=== PATIENT | male | born 1950 | race American Indian/Alaskan Native ===

== ENCOUNTER 2021-02-25 23:11 | Inpatient (IN) | payer MEDICARE ==
[2021-02-25 23:55] LABS: Basophils % (Auto) 0.3 % (0.0-1.8); Eosinophils # (Auto) 0.1 K/mm3 (0.0-0.4); Eosinophils % (Auto) 1.6 % (0.0-4.3); Hematocrit 50.8 % (35.5-45.6); Hemoglobin 17.4 gm/dl (11.8-15.2); Lymphocytes # (Auto) 1.7 K/mm3 (1.2-5.4); Lymphocytes % (Auto) 38.9 % (13.4-35.0); Mean Corpuscular HGB Conc 34 % (32-34); Mean Corpuscular Volume 104 fl (84-94); Monocytes # (Auto) 0.2 K/mm3 (0.0-0.8); Monocytes % (Auto) 4.5 % (0.0-7.3); Platelet Count 244 K/mm3 (140-440); Red Blood Count 4.89 M/mm3 (3.65-5.03); Red Cell Distribution Width 17.5 % (13.2-15.2)
[2021-02-26 00:13] LABS: Alanine Aminotransferase 39 units/L (7-56); Albumin 4.1 g/dL (3.9-5); BUN/Creatinine Ratio 7; Blood Urea Nitrogen 7 mg/dL (9-20); Calcium 8.8 mg/dL (8.4-10.2); Hemolysis Index 15
--- NOTE | 2021-02-26 00:14 | Cat Scan Report ---
CT HEAD WITHOUT CONTRAST INDICATION / CLINICAL INFORMATION: AMS. TECHNIQUE: All CT scans at this location are performed using CT dose reduction for ALARA by means of automated exposure control. COMPARISON: None available. FINDINGS: HEMORRHAGE: None. EXTRA-AXIAL SPACES: Mildly prominent likely related to cortical atrophy. VENTRICULAR SYSTEM: Normal in size and morphology for the patient's age. CEREBRAL PARENCHYMA: There is loss of peterson-white differentiation involving the medial right occipital lobe. MIDLINE SHIFT / HERNIATION: None. CEREBELLUM / BRAINSTEM: No significant abnormality. ORBITS: Normal as visualized. SOFT TISSUES: No significant abnormality. SKULL: No significant abnormality. PARANASAL SINUSES / MASTOID AIR CELLS: Normal as visualized. ADDITIONAL FINDINGS: None. IMPRESSION: 1. 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 No evidence of hemorrhage. CRITICAL RESULT Time of Discovery (BOTTLE CAPPER/CDT): 11:05 PM Time of Communication (BOTTLE CAPPER/CDT): 11:10 PM Licensed Practitioner Receiving Report: Dr. Keller Read-Back Performed: Yes. Signer Name: Shreyas Pacheco DO Signed: 02/26/2021 12:10 AM Workstation Name: [id number]
[2021-02-26 00:16] LABS: Bilirubin,Direct < 0.2 mg/dL (0-0.2)
--- NOTE | 2021-02-26 00:23 | Emergency Department Report ---
ED Altered Mental Status HPI - General Chief Complaint: Altered Mental Status Stated Complaint: ALTERED MENTAL STATUS Time Seen by Provider: 02/25/21 23:16 Source: EMS Mode of arrival: Stretcher Limitations: No Limitations - History of Present Illness Initial Comments: 70-year-old male presents to ED for altered mental status. Patient reports he has a history of lung cancer and "heart problems." EMS reports patient has a history of a previous CVA. Patient states he is unaware of a previous diagnosis of CVA. EMS reports that patient's grandson called 911 because patient has not been, normally over the last 2-3 days. This includes him not eating well. Grandson also reported that he noticed patient had slurred speech at around 3:30 PM. Patient reports drinking alcohol this afternoon. States he had one [place]. Patient's only complaint is that he has some dizziness that has been going on for the last 2 months. Patient denies any weakness or numbness. MD Complaint: altered mental status -: days(s) (3) Severity: moderate Context: alcohol abuse Associated Symptoms: loss of appetite. denies: chest pain, fever/chills, headaches, nausea/vomiting, shortness of breath, weakness - Related Data Allergies Allergy/AdvReac Type Severity Reaction Status Date / Time No Known Allergies Allergy Verified 02/25/21 23:20 ED Review of Systems ROS: Stated complaint: ALTERED MENTAL STATUS Other details as noted in HPI Comment: All other systems reviewed and negative Constitutional: denies: fever Respiratory: denies: shortness of breath Cardiovascular: denies: chest pain Gastrointestinal: denies: abdominal pain, vomiting Neurological: denies: headache, weakness, numbness ED Past Medical Hx - Past Medical History Hx Hypertension: Yes Hx CVA: Yes Hx of Cancer: Yes (lung) - Social History Smoking Status: Current Every Day Smoker ED Physical Exam - General Limitations: No Limitations General appearance: alert, in no apparent distress, appears intoxicated - Head Head exam: Present: atraumatic, normocephalic - Eye Eye exam: Present: normal appearance, EOMI - ENT ENT exam: Present: mucous membranes moist - Neck Neck exam: Present: normal inspection - Respiratory Respiratory exam: Present: normal lung sounds bilaterally. Absent: respiratory distress - Cardiovascular Cardiovascular Exam: Present: regular rate, normal rhythm - GI/Abdominal GI/Abdominal exam: Present: soft. Absent: distended, tenderness - Extremities Exam Extremities exam: Present: normal inspection - Neurological Exam Neurological exam: Present: alert, oriented X3 - Psychiatric Psychiatric exam: Present: normal affect, normal mood - Skin Skin exam: Present: warm, dry, intact, normal color - Assessment Assessment Interval: Baseline - Level of Consciousness 1a. Level of Consciousness: alert/keenly responsive - LOC Questions 1b. LOC Questions: answers both correctly - LOC Command 1c. LOC Commands: performs tasks correctly - Best Gaze 2. Best Gaze: normal - Visual 3. Visual: no visual loss - Facial Palsy 4. Facial Palsy: normal symmetrical movement - Motor Arm 5a. Motor Arm Left: no drift 5b. Motor Arm Right: no drift - Motor Leg 6a. Motor Leg Left: no drift 6b. Motor Leg Right: drift - Limb Ataxia 7. Limb Ataxia: absent - Sensory 8. Sensory: normal - Best Language 9. Best Language: no aphasia - Dysarthria 10. Dysarthria: mild/moderate dysarthria - Extinction and Inattention 11. Extinction/Inattention: no abnormality - Scoring Total Score: 2 Stroke Severity: Minor Stroke ED Course Vital Signs 02/25/21 02/25/21 02/26/21 23:20 23:46 00:02 Temperature 98.2 F Pulse Rate 84 99 H Respiratory 16 16 Rate Blood Pressure 104/69 106/71 [Left] O2 Sat by Pulse 97 97 97 Oximetry 02/26/21 02:00 Temperature Pulse Rate 90 Respiratory 30 H Rate Blood Pressure 101/67 [Left] O2 Sat by Pulse 98 Oximetry - Consultations Consultation #1: 02/26/21 00:[address] Valenzuela, teleneurologist. Patient not within TPA window. Admit for stroke work-up. - Lab Data Result diagrams: 02/25/21 23:34 02/25/21 23:34 Lab Results 02/25/21 02/25/21 02/25/21 Range/Units 23:34 23:34 23:34 WBC 4.2 L (4.5-11.0) K/mm3 RBC 4.89 (3.65-5.03) M/mm3 Hgb 17.4 H (11.8-15.2) gm/dl Hct 50.8 H (35.5-45.6) % MCV 104 H (84-94) fl MCH 36 H (28-32) pg MCHC 34 (32-34) % RDW 17.5 H (13.2-15.2) % Plt Count 244 (140-440) K/mm3 Lymph % (Auto) 38.9 H (13.4-35.0) % [place] % (Auto) 4.5 (0.0-7.3) % Eos % (Auto) 1.6 (0.0-4.3) % Baso % (Auto) 0.3 (0.0-1.8) % Lymph # (Auto) 1.7 (1.2-5.4) K/mm3 [place] # (Auto) 0.2 (0.0-0.8) K/mm3 Eos # (Auto) 0.1 (0.0-0.4) K/mm3 Baso # (Auto) 0.0 (0.0-0.1) K/mm3 Seg Neutrophils % 54.7 (40.0-70.0) % Seg Neutrophils # 2.3 (1.8-7.7) K/mm3 Sodium 139 (137-145) mmol/L Potassium 3.9 (3.6-5.0) mmol/L Chloride 99.9 (98-107) mmol/L Carbon Dioxide 25 (22-30) mmol/L Anion Gap 18 mmol/L BUN 7 L (9-20) mg/dL Creatinine 1.0 (0.8-1.3) mg/dL Estimated GFR > 60 ml/min BUN/Creatinine Ratio 7 % Glucose 111 H (75-100) mg/dL Calcium 8.8 (8.4-10.2) mg/dL Total Bilirubin 0.50 (0.1-1.2) mg/dL Direct Bilirubin < 0.2 (0-0.2) mg/dL Indirect Bilirubin 0.3 mg/dL AST 28 (5-40) units/L ALT 39 (7-56) units/L Alkaline Phosphatase 126 (35-129) units/L Total Protein 7.6 (6.3-8.2) g/dL Albumin 4.1 (3.9-5) g/dL Albumin/Globulin Ratio 1.2 % Plasma/Serum Alcohol 0.30 H (0-0.07) % - EKG Data -: EKG Interpreted by K[facility] EKG shows normal: sinus rhythm, QRS complexes Rate: normal Interpretation: nonspecific ST-T wave tatiana, other (Atrial premature complexes, left anterior fascicular block) - Radiology Data Radiology results: report reviewed, image reviewed - Medical Decision Making 70-year-old male presents to ED for altered mental status x2-3 days. Per EMS grandson also reported slurred speech at around 3:30 PM. Patient admits that he has been drinking today. Alcohol level 300. Patient's only complaint is of dizziness for a couple of months. I attempted to call patient's grandson as he was reportedly the one who called 911, however there was no answer at the phone number that patient provided. There are no phone numbers listed in the chart. CT head shows acute right medial occipital lobe infarct. NIH score of 2 on my exam. Teleneurologist consulted. Patient is not in TPA window. No CTA advised at this time. - Differential Diagnosis CVA, intoxication Critical care attestation.: If time is entered above; I have spent that time in minutes in the direct care of this critically ill patient, excluding procedure time. ED Disposition Clinical Impression: CVA (cerebral vascular accident), Alcohol intoxication Disposition: ADMITTED INPATIENT Is pt being admited?: Yes Condition: Stable Time of Disposition: 01:09
--- NOTE | 2021-02-26 00:32 | Consultation ---
Medications and Allergies Allergies Allergy/AdvReac Type Severity Reaction Status Date / Time No Known Allergies Allergy Verified 02/25/21 23:20 Physical Examination - Vital Signs Vital Signs: Vital Signs Temp Pulse Resp BP Pulse Ox 98.2 F 84 16 104/69 97 02/25/21 23:20 02/25/21 23:20 02/25/21 23:20 02/25/21 23:20 02/25/21 23:20 Results - Laboratory Findings CBC and BMP: 02/25/21 23:34 02/25/21 23:34 Abnormal Lab Findings: Abnormal Labs 02/25/21 02/25/21 02/25/21 23:34 23:34 23:34 WBC 4.2 L Hgb 17.4 H Hct 50.8 H MCV 104 H MCH 36 H RDW 17.5 H Lymph % (Auto) 38.9 H BUN 7 L Glucose 111 H Plasma/Serum Alcohol 0.30 H Assessment and Plan [facility] Consult Note # Demographics Consult Type: General Neurology Patient Location: Emergency Room First Name: Julio Last Name: Abi Date of : 1950 Age: 70 Gender: Male Facility: [facility] Time of Initial Page (Eastern Time): 02/26/2021, 00:26 Time of Return Call (Eastern Time): 02/26/2021, 00:26 Phone Only Consult: 70M with confusion, grandson reports the past 2-3 days not acting like himself. Poor PO intake recently also. Slurring of speech first noted 15:30, alcohol level elevated. Right occipital stroke seen on CT head tonight. # Scores VAN Screening: Negative # Plan Thrombolytic/Intervention: NOT IV Thrombolysis or IA Intervention candidate Thrombolytic Exclusion (< 3 hour window): time of onset unclear Thrombolytic Exclusion: > 4.5 hours Intraarterial Exclusion: VAN negative Other: I have discussed my recommendations with the referring provider Additional Recommendations: If patient develops severe neurologic deficit, then would obtain CTA head/neck, otherwise supportive care including MVI, thiamine. ASA, MRI brain, echo, tele. Disposition: admit # Logistics Telemedicine: phone only
[2021-02-26] MEDS ORDERED: MAGNESIUM HYDROXIDE (MOM) ORAL LIQD UDC PO PRN ×2 (01:34)
[2021-02-26] MEDS ORDERED: METOCLOPRAMIDE 10 MG TAB PO PRN (01:34)
[2021-02-26] MEDS ORDERED: MORPHINE 2 MG/1 ML INJ IV PRN (01:34)
[2021-02-26] MEDS ORDERED: PROMETHAZINE 25 MG RECT SUPP PR PRN (01:34)
[2021-02-26] MEDS ORDERED: ONDANSETRON 4 MG/2 ML INJ IV PRN ×2 (01:34)
[2021-02-26] MEDS ORDERED: MORPHINE 4 MG/1 ML INJ IV PRN (01:34)
[2021-02-26] MEDS ORDERED: ACETAMINOPHEN 325 MG TAB PO PRN ×2 (01:34)
--- NOTE | 2021-02-26 01:56 | History and Physical Report ---
History of Present Illness Date of examination: 02/26/21 Date of admission: 02/26/21 Chief complaint: Slurred speech History of present illness: 70-year-old -[place] male with known history of lung cancer and previous CVA was brought into the emergency room today by EMS for altered mental status. Grandson was said to have called EMS because the patient has not been himself over the past 2 to 3 days. He has had decreased oral intake and was also said to have been having slurred speech earlier today. Patient states that he will he was about to go to the restroom when he lost his balance but denies any fall or loss of consciousness. He also indicates that he has felt dizzy occasionally. He denies any fever or chills, no chest pain or shortness of breath, no headache and no diaphoresis. Patient denies any sick contacts and no recent travel. Denies any contact with anyone with COVID-19. He admits that he has been drinking some alcohol lately. Evaluation in the emergency room today, serum alcohol level was 0.3. CT scan of the head shows acute infarct of the right medial occipital lobe. No evidence of hemorrhage. tele-neurologist was consulted and recommendation is to have patient worked up for CVA. Past History Past Medical History: hypertension, stroke, other (History of lung cancer) Past Surgical History: No surgical history Social history: smoking (Current daily smoker), alcohol abuse Family history: no significant family history Medications and Allergies Allergies Allergy/AdvReac Type Severity Reaction Status Date / Time No Known Allergies Allergy Verified 02/25/21 23:20 Active Meds: Active Medications Acetaminophen (Acetaminophen 325 Mg Tab) 650 mg PO Q4H PRN PRN Reason: Pain MILD(1-3)/Fever >100.5/PUGH Acetaminophen (Acetaminophen 325 Mg Tab) 650 mg PO Q4H PRN PRN Reason: Pain, Mild (1-3) Aspirin (Aspirin 325 Mg Tab) 325 mg PO QDAY BENY Atorvastatin Calcium (Atorvastatin 40 Mg Tab) 40 mg PO QHS BENY Bisacodyl (Bisacodyl 10 Mg Rect Supp) 10 mg MO QDAY PRN PRN Reason: Constipation Heparin Sodium (Porcine) (Heparin 5,000 Unit/1 Ml Vial) 5,000 unit SUB-Q Q8HR BENY Sodium Chloride (Nacl 0.9% 1000 Ml) 1,000 mls @ 125 mls/hr IV DIRECT BENY Magnesium Hydroxide (Magnesium Hydroxide (Mom) Oral Liqd Udc) 30 ml PO Q4H PRN PRN Reason: Constipation Magnesium Hydroxide (Magnesium Hydroxide (Mom) Oral Liqd Udc) 30 ml PO Q4H PRN PRN Reason: Constipation Metoclopramide HCl (Metoclopramide 10 Mg Tab) 10 mg PO Q6H PRN PRN Reason: Nausea And Vomiting Morphine Sulfate (Morphine 2 Mg/1 Ml Inj) 2 mg IV Q4H PRN PRN Reason: Pain, Moderate (4-6) Morphine Sulfate (Morphine 4 Mg/1 Ml Inj) 4 mg IV Q4H PRN PRN Reason: Pain , Severe (7-10) Ondansetron HCl (Ondansetron 4 Mg/2 Ml Inj) 4 mg IV Q8H PRN PRN Reason: Nausea And Vomiting Ondansetron HCl (Ondansetron 4 Mg/2 Ml Inj) 4 mg IV Q8H PRN PRN Reason: Nausea And Vomiting Promethazine HCl (Promethazine 25 Mg Rect Supp) 25 mg MO Q6H PRN PRN Reason: Nausea And Vomiting Sodium Chloride (Sodium Chloride 0.9% 10 Ml Flush Syringe) 10 ml IV BID BENY Sodium Chloride (Sodium Chloride 0.9% 10 Ml Flush Syringe) 10 ml IV PRN PRN PRN Reason: LINE FLUSH Sodium Chloride (Sodium Chloride 0.9% 10 Ml Flush Syringe) 10 ml INJ PRN PRN PRN Reason: LINE FLUSH Review of Systems Constitutional: poor appetite, no fever, no chills Ears, nose, mouth and throat: no nasal congestion, no sore throat Cardiovascular: no chest pain, no palpitations Respiratory: no cough, no shortness of breath Gastrointestinal: no abdominal pain, no nausea, no vomiting, no diarrhea Genitourinary Male: no dysuria, no hematuria, no flank pain, no nocturia Musculoskeletal: no neck pain, no low back pain Integumentary: no rash, no pruritis Neurological: change in speech, gait dysfunction, no headaches, no confusion Psychiatric: no anxiety, no depression Endocrine: no polyphagia, no polydipsia, no polyuria, no nocturia Exam - Constitutional Vitals: Temp Pulse Resp BP Pulse Ox 98.2 F 99 H 16 106/71 97 02/25/21 23:20 10/18/21 00:02 02/26/21 00:02 02/26/21 00:02 02/26/21 00:02 General appearance: Present: no acute distress, well-nourished - EENT Eyes: Present: PERRL, EOM intact. Absent: scleral icterus ENT: hearing intact, clear oral mucosa, dentition normal - Neck Neck: Present: supple, normal ROM - Respiratory Respiratory effort: normal Respiratory: bilateral: CTA - Cardiovascular Rhythm: regular Heart Sounds: Present: S1 & S2. Absent: gallop, systolic murmur, diastolic murmur, rub, click - Extremities Extremities: no ischemia, pulses intact, pulses symmetrical, No edema, normal temperature, normal color, Full ROM Peripheral Pulses: within normal limits - Abdominal General gastrointestinal: Present: soft, non-tender, non-distended, normal bowel sounds. Absent: mass - Integumentary Integumentary: Present: clear, warm, dry, normal turgor. Absent: rash - Musculoskeletal Musculoskeletal: strength equal bilaterally - Psychiatric Psychiatric: appropriate mood/affect, intact judgment & insight, memory intact, cooperative - Neurologic Neurologic: CNII-XII intact, no focal deficits, moves all extremities Results - Labs CBC & Chem 7: 02/25/21 23:34 02/25/21 23:34 Labs: Abnormal lab results 02/25/21 02/25/21 02/25/21 Range/Units 23:34 23:34 23:34 WBC 4.2 L (4.5-11.0) K/mm3 Hgb 17.4 H (11.8-15.2) gm/dl Hct 50.8 H (35.5-45.6) % MCV 104 H (84-94) fl MCH 36 H (28-32) pg RDW 17.5 H (13.2-15.2) % Lymph % (Auto) 38.9 H (13.4-35.0) % BUN 7 L (9-20) mg/dL Glucose 111 H (75-100) mg/dL Plasma/Serum Alcohol 0.30 H (0-0.07) % Assessment and Plan - Patient Problems (1) CVA (cerebral vascular accident) Current Visit: No Status: Acute Plan to address problem: Patient admitted and placed on telemetry. We will check carotid Doppler and MRI of the brain. Consult placed to neurology for evaluation. (2) Alcohol intoxication Current Visit: Yes Status: Acute Plan to address problem: We will place patient on alcohol withdrawal protocol. (3) DVT prophylaxis Current Visit: Yes Status: Acute Plan to address problem: Patient placed on subcutaneous heparin. (4) Full code status Current Visit: Yes Status: Acute Plan to address problem: Patient is full code.
[2021-02-26] MEDS: HEPARIN 5,000 UNIT/1 ML VIAL SUB-Q SCH ×3 (06:45→22:14)
[2021-02-26] MEDS: SODIUM CHLORIDE 0.9% 1000 ML 1,000 ML IV SCH (07:15)
[2021-02-26] MEDS ORDERED: LORazepam 2 MG/ML VIAL IV PRN ×3 (07:30)
--- NOTE | 2021-02-26 07:43 | Consultation ---
History of Present Illness Consult date: 02/26/21 Reason for Consult: Altered mentation for 2-3 days History of present illness: Slurred speech History of present illness: 70-year-old -[place] Citizen male with known history of lung cancer and previous CVA was brought into the emergency room today by EMS for altered mental status. Grandson was said to have called EMS because the patient has not been himself over the past 2 to 3 days. He has had decreased oral intake and was also said to have been having slurred speech earlier today. According to Patient he was about to go to the restroom when he lost his balance but denies any fall or loss of consciousness. He also indicates that he has felt dizzy occasionally. He denies any fever or chills, no chest pain or shortness of breath, no headache and no diaphoresis. Patient denies any sick contacts and no recent travel. Denies any contact with anyone with COVID-19. He admits that he has been drinking some alcohol lately. Evaluation in the emergency room today, serum alcohol level was 0.3. CT scan of the head shows acute infarct of the right medial occipital lobe. No evidence of hemorrhage. tele-neurologist was consulted and recommendation is to have patient worked up for CVA. today pt. is alert oriented to date , he does not recall why he is in hospital other than being dizzy according to him he had cancer lung with port entry left side for treatment he continues to smoke 1 PPweek drink average 2-3 mixed drink , no recreational drug abuse Past History Past Medical History: hypertension, stroke, other (History of lung cancer) Past Surgical History: No surgical history Social history: smoking (Current daily smoker), alcohol abuse Family history: no significant family history Medications and Allergies Allergies Allergy/AdvReac Type Severity Reaction Status Date / Time No Known Allergies Allergy Verified 02/25/21 23:20 Active Meds: Active Medications Acetaminophen (Acetaminophen 325 Mg Tab) 650 mg PO Q4H PRN PRN Reason: Pain MILD(1-3)/Fever >100.5/PUGH Acetaminophen (Acetaminophen 325 Mg Tab) 650 mg PO Q4H PRN PRN Reason: Pain, Mild (1-3) Aspirin (Aspirin 325 Mg Tab) 325 mg PO QDAY [facility] Atorvastatin Calcium (Atorvastatin 40 Mg Tab) 40 mg PO QHS [facility] Bisacodyl (Bisacodyl 10 Mg Rect Supp) 10 mg OR QDAY PRN PRN Reason: Constipation Heparin Sodium (Porcine) (Heparin 5,000 Unit/1 Ml Vial) 5,000 unit SUB-Q Q8HR [facility] Sodium Chloride (Nacl 0.9% 1000 Ml) 1,000 mls @ 125 mls/hr IV DIRECT BENY Magnesium Hydroxide (Magnesium Hydroxide (Mom) Oral Liqd Udc) 30 ml PO Q4H PRN PRN Reason: Constipation Magnesium Hydroxide (Magnesium Hydroxide (Mom) Oral Liqd Udc) 30 ml PO Q4H PRN PRN Reason: Constipation Metoclopramide HCl (Metoclopramide 10 Mg Tab) 10 mg PO Q6H PRN PRN Reason: Nausea And Vomiting Morphine Sulfate (Morphine 2 Mg/1 Ml Inj) 2 mg IV Q4H PRN PRN Reason: Pain, Moderate (4-6) Morphine Sulfate (Morphine 4 Mg/1 Ml Inj) 4 mg IV Q4H PRN PRN Reason: Pain , Severe (7-10) Ondansetron HCl (Ondansetron 4 Mg/2 Ml Inj) 4 mg IV Q8H PRN PRN Reason: Nausea And Vomiting Ondansetron HCl (Ondansetron 4 Mg/2 Ml Inj) 4 mg IV Q8H PRN PRN Reason: Nausea And Vomiting Promethazine HCl (Promethazine 25 Mg Rect Supp) 25 mg OR Q6H PRN PRN Reason: Nausea And Vomiting Sodium Chloride (Sodium Chloride 0.9% 10 Ml Flush Syringe) 10 ml IV BID BENY Sodium Chloride (Sodium Chloride 0.9% 10 Ml Flush Syringe) 10 ml IV PRN PRN PRN Reason: LINE FLUSH Sodium Chloride (Sodium Chloride 0.9% 10 Ml Flush Syringe) 10 ml INJ PRN PRN PRN Reason: LINE FLUSH Review of Systems Constitutional: poor appetite, no fever, no chills Ears, nose, mouth and throat: no nasal congestion, no sore throat Cardiovascular: no chest pain, no palpitations Respiratory: no cough, no shortness of breath Gastrointestinal: no abdominal pain, no nausea, no vomiting, no diarrhea Genitourinary Male: no dysuria, no hematuria, no flank pain, no nocturia Musculoskeletal: no neck pain, no low back pain Integumentary: no rash, no pruritis Neurological: change in speech, gait dysfunction, no headaches, no confusion Psychiatric: no anxiety, no depression Endocrine: no polyphagia, no polydipsia, no polyuria, no nocturia Past History Past Medical History: hypertension, stroke, other (History of lung cancer) Past Surgical History: No surgical history Social history: smoking (Current daily smoker), alcohol abuse Family history: no significant family history Medications and Allergies Allergies Allergy/AdvReac Type Severity Reaction Status Date / Time No Known Allergies Allergy Verified 02/25/21 23:20 Active Meds: Active Medications Acetaminophen (Acetaminophen 325 Mg Tab) 650 mg PO Q4H PRN PRN Reason: Pain, Mild (1-3) Aspirin (Aspirin 325 Mg Tab) 325 mg PO QDAY [facility] Atorvastatin Calcium (Atorvastatin 40 Mg Tab) 40 mg PO QHS [facility] Bisacodyl (Bisacodyl 10 Mg Rect Supp) 10 mg OR QDAY PRN PRN Reason: Constipation Heparin Sodium (Porcine) (Heparin 5,000 Unit/1 Ml Vial) 5,000 unit SUB-Q Q8HR [facility] Last Admin: 02/26/21 06:45 Dose: 5,000 unit Documented by: Sodium Chloride (Nacl 0.9% 1000 Ml) 1,000 mls @ 125 mls/hr IV DIRECT BENY Last Admin: 02/26/21 07:15 Dose: 125 mls/hr Documented by: Lorazepam (Lorazepam 2 Mg/Ml Vial) 2 mg IV Q1H PRN PRN Reason: CIWA-Ar 8-15 Lorazepam (Lorazepam 2 Mg/Ml Vial) 4 mg IV Q1H PRN PRN Reason: CIWA-Ar 16-25 Lorazepam (Lorazepam 2 Mg/Ml Vial) 4 mg IV Q15MIN PRN PRN Reason: CIWA-Ar >25 Magnesium Hydroxide (Magnesium Hydroxide (Mom) Oral Liqd Udc) 30 ml PO Q4H PRN PRN Reason: Constipation Metoclopramide HCl (Metoclopramide 10 Mg Tab) 10 mg PO Q6H PRN PRN Reason: Nausea And Vomiting Morphine Sulfate (Morphine 2 Mg/1 Ml Inj) 2 mg IV Q4H PRN PRN Reason: Pain, Moderate (4-6) Morphine Sulfate (Morphine 4 Mg/1 Ml Inj) 4 mg IV Q4H PRN PRN Reason: Pain , Severe (7-10) Ondansetron HCl (Ondansetron 4 Mg/2 Ml Inj) 4 mg IV Q8H PRN PRN Reason: Nausea And Vomiting Promethazine HCl (Promethazine 25 Mg Rect Supp) 25 mg OR Q6H PRN PRN Reason: Nausea And Vomiting Sodium Chloride (Sodium Chloride 0.9% 10 Ml Flush Syringe) 10 ml IV BID BENY Sodium Chloride (Sodium Chloride 0.9% 10 Ml Flush Syringe) 10 ml IV PRN PRN PRN Reason: LINE FLUSH Physical Examination - Vital Signs Vital Signs: Vital Signs Temp Pulse Resp BP Pulse Ox 98.2 F 84 16 104/69 97 02/25/21 23:20 02/25/21 23:20 02/25/21 23:20 02/25/21 23:20 02/25/21 23:20 - Constitutional General appearance: comfortable - EENT EENT: Present: PERRL, mucous membranes moist - Respiratory Respiratory: Present: chest non-tender, lungs clear, rhonchi - Cardiovascular Cardiovascular: Present: regular rate, normal S1, normal S2 Extremities: Present: no peripheral edema bilatateraly, no clubbing, cyanosis - Gastrointestinal Gastrointestinal: Present: normoactive bowel sounds, absent bowel sounds - Integumentary Integumentary: Present: normal - Neurologic Cranial nerve examination: PERRL, EOMI, intact Speech examination: intact Sensorimotor examination: intact Detailed motor examination: grossly full strength in - Level of Consciousness 1a. Level of Consciousness: alert/keenly responsive - LOC Questions 1b. LOC Questions: answers both correctly - LOC Command 1c. LOC Commands: performs tasks correctly - Best Gaze 2. Best Gaze: normal - Visual 3. Visual: no visual loss - Facial Palsy 4. Facial Palsy: normal symmetrical movement - Motor Arm 5a. Motor Arm Left: no drift 5b. Motor Arm Right: no drift - Motor Leg 6a. Motor Leg Left: no drift 6b. Motor Leg Right: no drift - Limb Ataxia 7. Limb Ataxia: absent - Sensory 8. Sensory: normal - Best Language 9. Best Language: no aphasia - Dysarthria 10. Dysarthria: normal - Extinction and Inattention 11. Extinction/Inattention: no abnormality - Scoring Total Score: 0 Stroke Severity: No Stroke Symptoms Results - Laboratory Findings CBC and BMP: 02/25/21 23:34 02/25/21 23:34 Abnormal Lab Findings: Abnormal Labs 10/02/25/21 02/25/21 23:34 23:34 23:34 WBC 4.2 L Hgb 17.4 H Hct 50.8 H MCV 104 H MCH 36 H RDW 17.5 H Lymph % (Auto) 38.9 H BUN 7 L Glucose 111 H Plasma/Serum Alcohol 0.30 H Assessment and Plan Assessment and Plan - Patient Problems # pt. preesnted for evaluation of confusion and altered mentation noted by family for 2 days -today he is alert oriented no aphasia , no focal weakness with NIH#0 -CT brain is remarkable for possible subacute right medial occipital infact -suggest CTA brain and neck as well as MRI brain with gd due to Hx of cancer lung -Pt/ST - Lipid profil -ASA 325 mg daily and lipitor 40 mg -echo is pending -Pt/ST -cardiac monitering -orthostatic changes check # Alcohol intoxication # Lung cancer -We will place patient on alcohol withdrawal protocol. -level is 0.30 on admission Echo showing hyperdynamic LV function . Sodium level persistently elevated, # Lung cancer -he is with port catheter # DVT prophylaxis # Smoking and drinkina Patient placed on subcutaneous heparin. # Smoking and drinking -pt. is counseled # Full code status -Patient is full code. will follow
--- NOTE | 2021-02-26 09:00 | Event Note ---
Date: 02/26/21 This is a follow-up from an admission earlier this morning. Patient seen and examined. We will continue to plan as outlined in H&P. CT scan of the head shows acute infarct of the right medial occipital lobe. No evidence of hemorrhage. Follow-up carotid Doppler and MRI brain. Neurology following. Total visit time equals 32 minutes with greater than 50% spent on coordination of care and counseling
--- NOTE | 2021-02-26 09:57 | Vascular Lab Report ---
DUPLEX DOPPLER ULTRASOUND CAROTID, BILATERAL INDICATION / CLINICAL INFORMATION: stroke. COMPARISON: None available. FINDINGS: RIGHT CAROTID: - PLAQUE ESTIMATE (%): < 50% - CCA velocity: 104 cm/sec. - ICA peak systolic velocity: 76 cm/sec. - ICA/CCA PSV Ratio: Less than 2 Right Vertebral Artery: Antegrade flow. LEFT CAROTID: - PLAQUE ESTIMATE: < 50% - CCA velocity: 124 cm/sec. - ICA peak systolic velocity: 91 cm/sec. - ICA/CCA PSV Ratio: Less than 2 Left Vertebral Artery: Antegrade flow. IMPRESSION: 1. Right Internal Carotid Artery: Less than 50% diameter stenosis. 2. Left Internal Carotid Artery: Less than 50% diameter stenosis. Velocity criteria are extrapolated from diameter data as defined by the Society of Radiologists in Ul trasound Consensus Conference, Radiology 2003; 229;340-346. NO STENOSIS (NORMAL) * Plaque = none; ICA PSV < 125 cm/sec; ICA/CCA PSV Ratio < 2.0 <50% STENOSIS * Plaque < 50%; ICA PSV < 125 cm/sec; ICA/CCA PSV Ratio < 2.0 50-69% STENOSIS * Plaque > 50%; ICA PSV = 125-230 cm/sec; ICA/CCA PSV Ratio = 2.0-4.0 >70% BUT <100% STENOSIS * Plaque > 50%; ICA PSV > 230 cm/sec; ICA/CCA PSV Ratio > 4.0 NEAR OCCLUSION * Plaque = visible lumen; ICA PSV = high/low/none; ICA/CCA PSV Ratio = variable TOTAL OCCLUSION * Plaque = no lumen; ICA PSV = none; ICA/CCA PSV Ratio = N/A Signer Name: Solo Harris MD Signed: 02/26/2021 9:52 AM Workstation Name: [id number]
[2021-02-26] MEDS: ASPIRIN 325 MG TAB PO SCH (10:41)
[2021-02-26] MEDS ORDERED: FLU VACC QUAD 2021-22(6MOS UP)/PF 60 MCG/0.5 ML SYRINGE IM ONE (12:00)
--- NOTE | 2021-02-26 14:38 | Magnetic Resonance Report ---
NONENHANCED AND CONTRAST-ENHANCED MR SCAN OF THE BRAIN: INDICATION / CLINICAL INFORMATION: Seizure disorder. TECHNIQUE: Multiplanar, multisequence MR images of the brain obtained. COMPARISON: CT scan of the head from 02/25/2021 FINDINGS: BRAIN / INTRACRANIAL CONTENTS: In the CT scan, low-attenuation areas seen in the right occipital lobe . This is a chronic infarction since no restrictive diffusion in the contrast enhanced series, no par enchymal or adjacent meningeal enhancement seen. Normal diffusion-weighted images would exclude acute/subacute ischemia; normal gradient echo images w ould exclude hemorrhagic and calcified lesion. Brainstem and cerebellar hemispheres are normal. Subtle confluent periventricular white matter hyperintensities seen around the occipital horns probab ly due to cerebral atherosclerosis. In addition, scattered white matter lesions in both cerebral samm spheres ([place] 0) due to chronic small vessel disease. No enhancing parenchymal or meningeal lesion s. Given the history of seizures, no space taking lesion seen in the frontal lobes are in the temporal lobes; hippocampi are normal; no MR findings to suggest malformation of cortical development or nodul ar heterotopia. CRANIOCERVICAL JUNCTION: No significant abnormality. VASCULAR FLOW-VOIDS: Normal flow signal in the basilar artery and the P1 segments bilaterally; from t hese images, difficult to evaluate the P2 segments. ORBITS: No significant abnormality of visualized orbits. SINUSES / MASTOIDS: No significant abnormality of visualized sinuses and mastoid air cells. ADDITIONAL FINDINGS: None. IMPRESSION: Chronic right occipital lobe ischemia No space taking lesion Signer Name: Daniel Wesley MD Signed: 02/26/2021 2:34 PM Workstation Name: [id number]
--- NOTE | 2021-02-26 15:51 | Consultation ---
History of Present Illness Consult date: 02/26/21 Requesting physician: RODRIGUE COOMBS Consult reason: other (NSVT) History of present illness: Patient is a 70-year-old male with a past medical history of lung cancer and a CVA was brought to the ED for altered mental status x2 - 3 days. History is taken from chart and patient due to patient not recalling circumstances as to being in the hospital. Per documentation patient was said to have decreased intake and slurred speech before coming to the hospital. Patient reports that he remembers going to the bathroom and falling. Of note patient's serum alcohol level was 0.3 and Brain MRI shows chronic right occipital lobe ischemia. At time of interview patient states that he knows he has heart problems and that he follows with [facility] however he does not know his conditions. Patient reports that he sometimes feels dizzy. He denies any chest pain, shortness of breath, palpitations, rapid heart rate, or diaphoresis. Patient is previously unknown to our practice. Cardiology is consulted because patient had a 5 beat run of NSVT this morning. Past History Past Medical History: hypertension, stroke, other (History of lung cancer) Past Surgical History: No surgical history Social history: smoking (Current daily smoker), alcohol abuse Family history: no significant family history Medications and Allergies Allergies Allergy/AdvReac Type Severity Reaction Status Date / Time No Known Allergies Allergy Verified 02/25/21 23:20 Home Medications Medication Instructions Recorded Confirmed Last Taken Type Albuterol Mdi (or & Nicu Only) 2 puff IH Q6H PRN 02/26/21 02/26/21 Unknown History [ProAir HFA Inhaler] Aspirin EC [Halfprin EC] 81 mg PO QDAY 02/26/21 02/26/21 02/09/21 History AtorvaSTATin [Lipitor] 20 mg PO QHS 02/26/21 02/26/21 02/25/21 History Dapagliflozin Propanediol [Farxiga] 10 mg PO QDAY 02/26/21 02/26/21 02/25/21 History Furosemide [Lasix] 20 mg PO QDAY 02/26/21 02/26/21 02/25/21 History Isosorbide Dinitrate [Isordil] 10 mg PO TID 02/26/21 02/26/21 Unknown History Metoprolol Xl [Metoprolol 100 mg PO QDAY 02/26/21 02/26/21 02/25/21 History SUCCINATE ER TAB] Sodium Polystyrene [Kionex] 15 gm PO QDAY 02/26/21 02/26/21 Unknown History Tiotropium [place] [Spiriva] 18 mcg IH QDAY 02/26/21 02/26/21 Unknown History hydrALAZINE [Apresoline] 25 mg PO TID 02/26/21 02/26/21 Unknown History levETIRAcetam [Keppra TAB] 500 mg PO BID 02/26/21 02/26/21 02/25/21 History Active Meds: Active Medications Acetaminophen (Acetaminophen 325 Mg Tab) 650 mg PO Q4H PRN PRN Reason: Pain, Mild (1-3) Aspirin (Aspirin 325 Mg Tab) 325 mg PO QDAY [facility] Last Admin: 02/26/21 10:41 Dose: 325 mg Documented by: Atorvastatin Calcium (Atorvastatin 40 Mg Tab) 40 mg PO QHS BENY Bisacodyl (Bisacodyl 10 Mg Rect Supp) 10 mg CO QDAY PRN PRN Reason: Constipation Heparin Sodium (Porcine) (Heparin 5,000 Unit/1 Ml Vial) 5,000 unit SUB-Q Q8HR [facility] Last Admin: 02/26/21 14:21 Dose: 5,000 unit Documented by: Sodium Chloride (Nacl 0.9% 1000 Ml) 1,000 mls @ 125 mls/hr IV DIRECT [facility] Last Admin: 02/26/21 07:15 Dose: 125 mls/hr Documented by: Lorazepam (Lorazepam 2 Mg/Ml Vial) 2 mg IV Q1H PRN PRN Reason: CIWA-Ar 8-15 Lorazepam (Lorazepam 2 Mg/Ml Vial) 4 mg IV Q1H PRN PRN Reason: CIWA-Ar 16-25 Lorazepam (Lorazepam 2 Mg/Ml Vial) 4 mg IV Q15MIN PRN PRN Reason: CIWA-Ar >25 Magnesium Hydroxide (Magnesium Hydroxide (Mom) Oral Liqd Udc) 30 ml PO Q4H PRN PRN Reason: Constipation Metoclopramide HCl (Metoclopramide 10 Mg Tab) 10 mg PO Q6H PRN PRN Reason: Nausea And Vomiting Morphine Sulfate (Morphine 2 Mg/1 Ml Inj) 2 mg IV Q4H PRN PRN Reason: Pain, Moderate (4-6) Morphine Sulfate (Morphine 4 Mg/1 Ml Inj) 4 mg IV Q4H PRN PRN Reason: Pain , Severe (7-10) Ondansetron HCl (Ondansetron 4 Mg/2 Ml Inj) 4 mg IV Q8H PRN PRN Reason: Nausea And Vomiting Promethazine HCl (Promethazine 25 Mg Rect Supp) 25 mg CO Q6H PRN PRN Reason: Nausea And Vomiting Sodium Chloride (Sodium Chloride 0.9% 10 Ml Flush Syringe) 10 ml IV BID [facility]ENY Last Admin: 02/26/21 10:42 Dose: 10 ml Documented by: Sodium Chloride (Sodium Chloride 0.9% 10 Ml Flush Syringe) 10 ml IV PRN PRN PRN Reason: LINE FLUSH Review of Systems Constitutional: no weight loss, no weight gain Ears, nose, mouth and throat: no tinnitis, no decreased hearing, no nose pain Cardiovascular: syncope, lightheadedness, no chest pain, no orthopnea, no palpitations, no rapid/irregular heart beat, no edema, no shortness of breath Respiratory: no cough, no cough with sputum, no excessive sputum, no shortness of breath, no dyspnea on exertion Gastrointestinal: no abdominal pain, no nausea, no vomiting Musculoskeletal: no neck stiffness, no neck pain Integumentary: no rash, no pruritis, no redness Neurological: syncope, no head injury Psychiatric: no anxiety, no memory loss Endocrine: no cold intolerance, no heat intolerance Hematologic/Lymphatic: no easy bruising, no easy bleeding Physical Examination Vital Signs Temp Pulse Resp BP Pulse Ox 98.2 F 84 16 104/69 97 02/25/21 23:20 02/25/21 23:20 02/25/21 23:20 02/25/21 23:20 02/25/21 23:20 General appearance: no acute distress HEENT: Positive: PERRL Neck: Positive: trachea midline Cardiac: Positive: Reg Rate and Rhythm Lungs: Positive: Decreased Breath Sounds Neuro: Positive: Grossly Intact Abdomen: Positive: Soft Skin: Negative: Rash, Suspicious Lesions Extremities: Present: upper extr. pulses, lower extr. pulses. Absent: edema Results 02/25/21 23:34 02/25/21 23:34 Cardiac Enzymes 02/25/21 Range/Units 23:34 AST 28 (5-40) units/L CBC 02/25/21 Range/Units 23:34 WBC 4.2 L (4.5-11.0) K/mm3 RBC 4.89 (3.65-5.03) M/mm3 Hgb 17.4 H (11.8-15.2) gm/dl Hct 50.8 H (35.5-45.6) % Plt Count 244 (140-440) K/mm3 Lymph # (Auto) 1.7 (1.2-5.4) K/mm3 [place] # (Auto) 0.2 (0.0-0.8) K/mm3 Eos # (Auto) 0.1 (0.0-0.4) K/mm3 Baso # (Auto) 0.0 (0.0-0.1) K/mm3 Comprehensive Metabolic Panel 02/25/21 Range/Units 23:34 Sodium 139 (137-145) mmol/L Potassium 3.9 (3.6-5.0) mmol/L Chloride 99.9 (98-107) mmol/L Carbon Dioxide 25 (22-30) mmol/L BUN 7 L (9-20) mg/dL Creatinine 1.0 (0.8-1.3) mg/dL Glucose 111 H (75-100) mg/dL Calcium 8.8 (8.4-10.2) mg/dL Direct Bilirubin < 0.2 (0-0.2) mg/dL Indirect Bilirubin 0.3 mg/dL AST 28 (5-40) units/L ALT 39 (7-56) units/L Alkaline Phosphatase 126 (35-129) units/L Total Protein 7.6 (6.3-8.2) g/dL Albumin 4.1 (3.9-5) g/dL - Imaging and Cardiology Echo: pending EKG interpretations - Telemetry EKG Rhythm: Sinus Rhythm - EKG Sinus rhythms and dysrhythmias: sinus rhythm Supraventricular dysrhythmia: atrial premature complexe Repolarization changes or abnormalities: nonspecific abnormality, ST segment, and/or T wave Assessment and Plan EKG shows sinus 96 APCs, nonspecific T abnormalities. No acute ischemic changes Troponins pending. Echo pending. Patient on CIWA protocol Will hold BP medications due soft. BP Patient seen in conjunction with Dr Fowler who agrees with this plan of care. Will continue to follow - Patient Problems (1) CVA (cerebral vascular accident) Current Visit: No Status: Acute (2) Alcohol intoxication Current Visit: Yes Status: Acute (3) DVT prophylaxis Current Visit: Yes Status: Acute
[2021-02-27 06:25] LABS: Basophils % (Auto) 0.4 % (0.0-1.8); Eosinophils # (Auto) 0.1 K/mm3 (0.0-0.4); Eosinophils % (Auto) 3.9 % (0.0-4.3); Hemoglobin 14.7 gm/dl (11.8-15.2); Lymphocytes % (Auto) 29.8 % (13.4-35.0); Mean Corpuscular HGB Conc 35 % (32-34); Mean Corpuscular Volume 104 fl (84-94); Monocytes # (Auto) 0.3 K/mm3 (0.0-0.8); Platelet Count 185 K/mm3 (140-440); Red Blood Count 4.06 M/mm3 (3.65-5.03); Red Cell Distribution Width 17.9 % (13.2-15.2)
[2021-02-27 06:26] LABS: INR 0.9 (0.87-1.13)
[2021-02-27 06:38] LABS: BUN/Creatinine Ratio 12; Blood Urea Nitrogen 11 mg/dL (9-20); Chol/HDL Ratio 2.42 %; HDL Cholesterol 50 mg/dL (40-59); Hemolysis Index 11; LDL Cholesterol,Direct 54 mg/dL (50-130)
[2021-02-27] MEDS: HEPARIN 5,000 UNIT/1 ML VIAL SUB-Q SCH ×3 (06:59→21:55)
[2021-02-27] MEDS: ASPIRIN 325 MG TAB PO SCH (10:21)
[2021-02-27] MEDS: METOPROLOL TARTRATE 25 MG TAB PO SCH ×2 (10:35→21:55)
--- NOTE | 2021-02-27 10:53 | Electrocardiograph Report ---
[facility] Test Date: 2021-02-26 Test Time: 00:46:15 Pat Name: BRANDI ANDERSON Department: Room: A472 1 Gender: M Instrument Technologist: ED NURSE : 1950 Requested By: ANNELISE GRIFFITH Order Number: [id number] Reading MD: Percy Fowler Measurements Intervals [place] Rate: 96 P: 74 MA: 155 QRS: -76 QRSD: 74 T: 102 QT: 347 QTc: 434 Interpretive Statements Sinus rhythm Atrial premature complexes Probable left atrial enlargement Left anterior fascicular block Low voltage, precordial leads Nonspecific T abnrm, anterolateral leads No previous ECG available for comparison Electronically Signed On 02-27-2021 10:53:06 EDT by Percy Fowler
--- NOTE | 2021-02-27 12:26 | Consultation ---
History of Present Illness Consult date: 02/27/21 Reason for Consult: confusion and weakness History of present illness: Slurred speech History of present illness: 70-year-old -Indian male with known history of lung cancer and previous CVA was brought into the emergency room today by EMS for altered mental status. Grandson was said to have called EMS because the patient has not been himself over the past 2 to 3 days. He has had decreased oral intake and was also said to have been having slurred speech earlier today. According to Patient he was about to go to the restroom when he lost his balance but denies any fall or loss of consciousness. He also indicates that he has felt dizzy occasionally. He denies any fever or chills, no chest pain or shortness of breath, no headache and no diaphoresis. Patient denies any sick contacts and no recent travel. Denies any contact with anyone with COVID-19. He admits that he has been drinking some alcohol lately. Evaluation in the emergency room today, serum alcohol level was 0.3. CT scan of the head shows acute infarct of the right medial occipital lobe. No evidence of hemorrhage. tele-neurologist was consulted and recommendation is to have patient worked up for CVA. today pt. is alert oriented to date , he does not recall why he is in hospital other than being dizzy according to him he had cancer lung with port entry left side for treatment he continues to smoke 1 PPweek drink average 2-3 mixed drink , no recreational drug abuse Past History Past Medical History: hypertension, stroke, other (History of lung cancer) Past Surgical History: No surgical history Social history: smoking (Current daily smoker), alcohol abuse Family history: no significant family history Past History Past Medical History: hypertension, stroke, other (History of lung cancer) Past Surgical History: No surgical history Social history: smoking (Current daily smoker), alcohol abuse Family history: no significant family history Medications and Allergies Allergies Allergy/AdvReac Type Severity Reaction Status Date / Time No Known Allergies Allergy Verified 02/25/21 23:20 Home Medications Medication Instructions Recorded Confirmed Last Taken Type Albuterol Mdi (or & Nicu Only) 2 puff IH Q6H PRN 02/26/21 02/26/21 Unknown History [ProAir HFA Inhaler] Aspirin EC [Halfprin EC] 81 mg PO QDAY 1002/26/21 02/09/21 History AtorvaSTATin [Lipitor] 20 mg PO QHS 02/26/21 02/26/21 02/25/21 History Dapagliflozin Propanediol [Farxiga] 10 mg PO QDAY 02/26/21 02/26/21 02/25/21 History Furosemide [Lasix] 20 mg PO QDAY 02/26/21 02/26/21 02/25/21 History Isosorbide Dinitrate [Isordil] 10 mg PO TID 02/26/21 02/26/21 Unknown History Metoprolol Xl [Metoprolol 100 mg PO QDAY 02/26/21 02/26/21 02/25/21 History SUCCINATE ER TAB] Sodium Polystyrene [Kionex] 15 gm PO QDAY 02/26/21 02/26/21 Unknown History Tiotropium [place] [Spiriva] 18 mcg IH QDAY 02/26/21 02/26/21 Unknown History hydrALAZINE [Apresoline] 25 mg PO TID 02/26/21 02/26/21 Unknown History levETIRAcetam [Keppra TAB] 500 mg PO BID 02/26/21 02/26/21 02/25/21 History Active Meds: Active Medications Acetaminophen (Acetaminophen 325 Mg Tab) 650 mg PO Q4H PRN PRN Reason: Pain, Mild (1-3) Aspirin (Aspirin 325 Mg Tab) 325 mg PO QDAY [facility] Last Admin: 02/27/21 10:21 Dose: 325 mg Documented by: Atorvastatin Calcium (Atorvastatin 40 Mg Tab) 40 mg PO QHS [facility] Last Admin: 02/26/21 22:14 Dose: 40 mg Documented by: Bisacodyl (Bisacodyl 10 Mg Rect Supp) 10 mg MN QDAY PRN PRN Reason: Constipation Heparin Sodium (Porcine) (Heparin 5,000 Unit/1 Ml Vial) 5,000 unit SUB-Q Q8HR [facility] Last Admin: 02/27/21 06:59 Dose: 5,000 unit Documented by: Sodium Chloride (Nacl 0.9% 1000 Ml) 1,000 mls @ 125 mls/hr IV DIRECT [facility] Last Admin: 02/26/21 07:15 Dose: 125 mls/hr Documented by: Lorazepam (Lorazepam 2 Mg/Ml Vial) 2 mg IV Q1H PRN PRN Reason: CIWA-Ar 8-15 Lorazepam (Lorazepam 2 Mg/Ml Vial) 4 mg IV Q1H PRN PRN Reason: CIWA-Ar 16-25 Lorazepam (Lorazepam 2 Mg/Ml Vial) 4 mg IV Q15MIN PRN PRN Reason: CIWA-Ar >25 Magnesium Hydroxide (Magnesium Hydroxide (Mom) Oral Liqd Udc) 30 ml PO Q4H PRN PRN Reason: Constipation Metoclopramide HCl (Metoclopramide 10 Mg Tab) 10 mg PO Q6H PRN PRN Reason: Nausea And Vomiting Metoprolol Tartrate (Metoprolol Tartrate 25 Mg Tab) 25 mg PO BID [facility] Morphine Sulfate (Morphine 2 Mg/1 Ml Inj) 2 mg IV Q4H PRN PRN Reason: Pain, Moderate (4-6) Morphine Sulfate (Morphine 4 Mg/1 Ml Inj) 4 mg IV Q4H PRN PRN Reason: Pain , Severe (7-10) Ondansetron HCl (Ondansetron 4 Mg/2 Ml Inj) 4 mg IV Q8H PRN PRN Reason: Nausea And Vomiting Promethazine HCl (Promethazine 25 Mg Rect Supp) 25 mg MN Q6H PRN PRN Reason: Nausea And Vomiting Sodium Chloride (Sodium Chloride 0.9% 10 Ml Flush Syringe) 10 ml IV BID [facility] Last Admin: 02/27/21 10:21 Dose: 10 ml Documented by: Sodium Chloride (Sodium Chloride 0.9% 10 Ml Flush Syringe) 10 ml IV PRN PRN PRN Reason: LINE FLUSH Physical Examination - Vital Signs Vital Signs: Vital Signs Temp Pulse Resp BP Pulse Ox 98.2 F 84 16 104/69 97 02/25/21 23:20 02/25/21 23:20 02/25/21 23:20 02/25/21 23:20 02/25/21 23:20 - Constitutional General appearance: comfortable - EENT EENT: Present: PERRL, mucous membranes moist - Respiratory Respiratory: Present: chest non-tender, lungs clear, rhonchi - Cardiovascular Cardiovascular: Present: regular rate, normal S1, normal S2 Extremities: Present: no peripheral edema bilatateraly, no clubbing, cyanosis - Gastrointestinal Gastrointestinal: Present: normoactive bowel sounds - Integumentary Integumentary: Present: normal - Neurologic Cranial nerve examination: PERRL, EOMI, intact Speech examination: intact Sensorimotor examination: intact Detailed motor examination: grossly full strength in Results - Laboratory Findings CBC and BMP: 02/27/21 05:11 02/27/21 05:11 Abnormal Lab Findings: Abnormal Labs 02/25/21 02/25/21 02/25/21 23:34 23:34 23:34 WBC 4.2 L Hgb 17.4 H Hct 50.8 H MCV 104 H MCH 36 H MCHC RDW 17.5 H Lymph % (Auto) 38.9 H [place] % (Auto) Lymph # (Auto) BUN 7 L Glucose 111 H Plasma/Serum Alcohol 0.30 H 02/27/21 05:11 WBC 3.2 L Hgb Hct MCV 104 H MCH 36 H MCHC 35 H RDW 17.9 H Lymph % (Auto) [place] % (Auto) 10.0 H Lymph # (Auto) 1.0 L BUN Glucose Plasma/Serum Alcohol Assessment and Plan Assessment and Plan - Patient Problems # pt. presented for evaluation of confusion and altered mentation noted by family for 2 days -today he is alert oriented no aphasia , no focal weakness with NIH#0 -CT brain is remarkable for possible subacute right medial occipital infact - MRI brain done wo Gd showed remote chronic right occipital infarct -NSR -Pt/ST - Lipid profil,LDL#54 -ASA 325 mg daily and lipitor 40 mg -echo is remarkable for EF#15-20% -UD carotid <50% bilateral. -Pt/ST -cardiac monitering -orthostatic changes check not done # Alcohol intoxication # Lung cancer -We will place patient on alcohol withdrawal protocol. -level is 0.30 on admission -Echo showing 15-20% LV function . - Sodium level persistently elevated, # Lung cancer -he is with port catheter # DVT prophylaxis # Smoking and drinkina Patient placed on subcutaneous heparin. # Smoking and drinking -pt. is counseled # Full code status -Patient is full code. PLAN 1- No indication to repeat MRI with gd he is alert oriented 2- Avoid alcohol 3- cardiac recommendation, he is on ASA and Lipitor , Consider AC if embolic event is noted ? due to cardiomyopathy will sign off
--- NOTE | 2021-02-27 13:10 | Progress Note ---
Assessment and Plan EKG shows sinus 96 APCs, nonspecific T abnormalities. No acute ischemic changes. Troponins negative x3 AMI ruled out Echo 02/26/2021-EF 15 to 20%, left ventricle is moderately dilated, left ventricular systolic function is severely decreased. Right ventricle is not well visualized, right ventricular systolic function grossly normal, left atrium is normal in size saline bubble study did not demonstrate PFO, mild tricuspid regurgitation. Patient on CIWA protocol Records requested from [facility]. Agree with Metorpolol 25mg PO BID. Will restart home medications: Isordil 10mg PO TID, hydralizine 25mg PO TID,Lasix 20mg PO QD Patient seen in conjunction with Dr Fowler who agrees with this plan of care. Will continue to follow - Patient Problems (1) Alcohol intoxication Current Visit: Yes Status: Acute (2) DVT prophylaxis Current Visit: Yes Status: Acute Subjective Date of service: 02/27/21 Principal diagnosis: Altered mental status Interval history: Patient sitting in bed with no cardiac complaints Sinus 80s with PVCs on monitor Objective Vital Signs Temp Pulse Resp BP Pulse Ox 02/27/21 04:04 97.5 F L 81 20 123/76 100 02/27/21 03:00 98 02/26/21 23:46 98.7 F 107 H 20 134/75 96 02/26/21 18:56 98.7 F 124 H 20 121/71 95 02/26/21 15:55 18 96 - Physical Examination General: No Apparent Distress HEENT: Positive: PERRL Neck: Positive: trachea midline Cardiac: Positive: Reg Rate and Rhythm Lungs: Positive: Normal Breath Sounds Neuro: Positive: Grossly Intact Abdomen: Positive: Soft Skin: Negative: Rash, Suspicious Lesions Extremities: Present: upper extr. pulses, lower extr. pulses. Absent: edema - Labs and Meds Coagulation 02/27/21 Range/Units 05:11 PT 13.2 (12.2-14.9) Sec. INR 0.90 (0.87-1.13) Lipids 02/27/21 Range/Units 05:11 Triglycerides 139 (2-149) mg/dL Cholesterol 121 (50-199) mg/dL HDL Cholesterol 50 (40-59) mg/dL Cholesterol/HDL Ratio 2.42 % CBC 02/27/21 Range/Units 05:11 WBC 3.2 L (4.5-11.0) K/mm3 RBC 4.06 (3.65-5.03) M/mm3 Hgb 14.7 (11.8-15.2) gm/dl Hct 42.0 D (35.5-45.6) % Plt Count 185 (140-440) K/mm3 Lymph # (Auto) 1.0 L (1.2-5.4) K/mm3 [place] # (Auto) 0.3 (0.0-0.8) K/mm3 Eos # (Auto) 0.1 (0.0-0.4) K/mm3 Baso # (Auto) 0.0 (0.0-0.1) K/mm3 Comprehensive Metabolic Panel 02/27/21 Range/Units 05:11 Sodium 139 (137-145) mmol/L Potassium 3.7 (3.6-5.0) mmol/L Chloride 102.3 (98-107) mmol/L Carbon Dioxide 26 (22-30) mmol/L BUN 11 (9-20) mg/dL Creatinine 0.9 (0.8-1.3) mg/dL Glucose 97 (75-100) mg/dL Calcium 9.0 (8.4-10.2) mg/dL - Imaging and Cardiology Echo: report reviewed - Telemetry EKG Rhythm: Sinus Rhythm - EKG Sinus rhythms and dysrhythmias: sinus rhythm Repolarization changes or abnormalities: nonspecific abnormality, ST segment, and/or T wave
[2021-02-27] MEDS: hydrALAZINE 25 MG TAB PO SCH ×2 (13:58→21:57)
[2021-02-27] MEDS: ISOSORBIDE DINITRATE 10 MG TAB PO SCH (14:42)
--- NOTE | 2021-02-27 18:59 | Progress Note ---
Assessment and Plan Assessment and plan: 10-year-old -Filipino male with known history of lung cancer and previous CVA was brought into the emergency room today by EMS for altered mental status. Grandson was said to have called EMS because the patient has not been himself over the past 2 to 3 days. He has had decreased oral intake and was also said to have been having slurred speech earlier today. Patient states that he will he was about to go to the restroom when he lost his balance but denies any fall or loss of consciousness. He also indicates that he has felt dizzy occasionally. He denies any fever or chills, no chest pain or shortness of breath, no headache and no diaphoresis. Patient denies any sick contacts and no recent travel. Denies any contact with anyone with COVID-19. He admits that he has been drinking some alcohol lately. Evaluation in the emergency room today, serum alcohol level was 0.3. CT scan of the head shows acute infarct of the right medial occipital lobe. No evidence of hemorrhage. tele-neurologist was consulted and recommendation is to have patient worked up for CVA. (1) CVA (cerebral vascular accident) Current Visit: No Status: Acute Plan to address problem: Patient admitted and placed on telemetry. We will check carotid Doppler and MRI of the brain. Consult placed to neurology for evaluation. (2) Alcohol intoxication Current Visit: Yes Status: Acute Plan to address problem: We will place patient on alcohol withdrawal protocol. (3) DVT prophylaxis Current Visit: Yes Status: Acute Plan to address problem: Patient placed on subcutaneous heparin. (4) Full code status Current Visit: Yes Status: Acute Plan to address problem: Patient is full code. Hospitalist Physical - Constitutional Vitals: Temp Pulse Resp BP Pulse Ox 97.5 F L 81 20 123/76 98 02/27/21 04:04 02/27/21 13:58 02/27/21 04:04 02/27/21 13:58 02/27/21 15:00 General appearance: Present: no acute distress HEART Score - HEART Score Troponin: Troponin T < 0.010 ng/mL (0.00-0.029) 02/26/21 23:23 Results - Labs CBC & Chem 7: 02/27/21 05:11 02/27/21 05:11 Labs: Laboratory Last Values WBC 3.2 K/mm3 (4.5-11.0) L 02/27/21 05:11 RBC 4.06 M/mm3 (3.65-5.03) 02/27/21 05:11 Hgb 14.7 gm/dl (11.8-15.2) 02/27/21 05:11 Hct 42.0 % (35.5-45.6) D 02/27/21 05:11 MCV 104 fl (84-94) H 02/27/21 05:11 MCH 36 pg (28-32) H 02/27/21 05:11 MCHC 35 % (32-34) H 02/27/21 05:11 RDW 17.9 % (13.2-15.2) H 02/27/21 05:11 Plt Count 185 K/mm3 (140-440) 02/27/21 05:11 Lymph % (Auto) 29.8 % (13.4-35.0) 02/27/21 05:11 [place] % (Auto) 10.0 % (0.0-7.3) H 02/27/21 05:11 Eos % (Auto) 3.9 % (0.0-4.3) 02/27/21 05:11 Baso % (Auto) 0.4 % (0.0-1.8) 02/27/21 05:11 Lymph # (Auto) 1.0 K/mm3 (1.2-5.4) L 02/27/21 05:11 [place] # (Auto) 0.3 K/mm3 (0.0-0.8) 02/27/21 05:11 Eos # (Auto) 0.1 K/mm3 (0.0-0.4) 02/27/21 05:11 Baso # (Auto) 0.0 K/mm3 (0.0-0.1) 02/27/21 05:11 Seg Neutrophils % 55.9 % (40.0-70.0) 02/27/21 05:11 Seg Neutrophils # 1.8 K/mm3 (1.8-7.7) 02/27/21 05:11 PT 13.2 Sec. (12.2-14.9) 02/27/21 05:11 INR 0.90 (0.87-1.13) 02/27/21 05:11 Sodium 139 mmol/L (137-145) 02/27/21 05:11 Potassium 3.7 mmol/L (3.6-5.0) 02/27/21 05:11 Chloride 102.3 mmol/L (98-107) 02/27/21 05:11 Carbon Dioxide 26 mmol/L (22-30) 02/27/21 05:11 Anion Gap 14 mmol/L 02/27/21 05:11 BUN 11 mg/dL (9-20) 02/27/21 05:11 Creatinine 0.9 mg/dL (0.8-1.3) 02/27/21 05:11 Estimated GFR > 60 ml/min 02/27/21 05:11 BUN/Creatinine Ratio 12 % 02/27/21 05:11 Glucose 97 mg/dL (75-100) 02/27/21 05:11 Calcium 9.0 mg/dL (8.4-10.2) 02/27/21 05:11 Magnesium 1.80 mg/dL (1.7-2.3) 02/27/21 05:11 Total Bilirubin 0.50 mg/dL (0.1-1.2) 02/25/21 23:34 Direct Bilirubin < 0.2 mg/dL (0-0.2) 02/25/21 23:34 Indirect Bilirubin 0.3 mg/dL 02/25/21 23:34 AST 28 units/L (5-40) 02/25/21 23:34 ALT 39 units/L (7-56) 02/25/21 23:34 Alkaline Phosphatase 126 units/L (35-129) 02/25/21 23:34 Troponin T < 0.010 ng/mL (0.00-0.029) 02/26/21 23:23 Total Protein 7.6 g/dL (6.3-8.2) 02/25/21 23:34 Albumin 4.1 g/dL (3.9-5) 02/25/21 23:34 Albumin/Globulin Ratio 1.2 % 02/25/21 23:34 Triglycerides 139 mg/dL (2-149) 02/27/21 05:11 Cholesterol 121 mg/dL (50-199) 02/27/21 05:11 LDL Cholesterol Direct 54 mg/dL (50-130) 02/27/21 05:11 HDL Cholesterol 50 mg/dL (40-59) 02/27/21 05:11 Cholesterol/HDL Ratio 2.42 % 02/27/21 05:11 Nasal Screen MRSA (PCR) Negative (Negative) 02/26/21 15:50 Plasma/Serum Alcohol 0.30 % (0-0.07) H 02/25/21 23:34 Car/IV: Voiding Method Urinal Active Medications - Current Medications Current Medications: Generic Name Dose Route Start Last Admin Trade Name Freq PRN Reason Stop Dose Admin Acetaminophen 650 mg 02/26/21 01:34 Acetaminophen 325 Mg Tab PO Q4H PRN Pain, Mild (1-3) Aspirin 325 mg 02/26/21 10:00 02/27/21 10:21 Aspirin 325 Mg Tab PO 325 mg QDAY BENY Administration Atorvastatin Calcium 40 mg 02/26/21 22:00 02/26/21 22:14 Atorvastatin 40 Mg Tab PO 40 mg QHS BENY Administration Bisacodyl 10 mg 02/26/21 01:34 Bisacodyl 10 Mg Rect Supp MN QDAY PRN Constipation Furosemide 20 mg 02/28/21 10:00 Furosemide 20 Mg Tab PO QDAY BENY Heparin Sodium (Porcine) 5,000 unit 02/26/21 06:00 02/27/21 13:58 Heparin 5,000 Unit/1 Ml Vial SUB-Q 5,000 unit Q8HR BENY Administration Hydralazine HCl 25 mg 02/27/21 14:00 02/27/21 13:58 Hydralazine 25 Mg Tab PO 25 mg Q8HR BENY Administration Sodium Chloride 1,000 mls @ 125 mls/hr 02/26/21 01:45 02/26/21 07:15 Nacl 0.9% 1000 Ml IV 125 mls/hr DIRECT BENY Administration Isosorbide Dinitrate 10 mg 02/27/21 14:00 02/27/21 14:42 Isosorbide Dinitrate 10 Mg Tab PO Not Given Q8HR BENY Lorazepam 2 mg 02/26/21 07:30 Lorazepam 2 Mg/Ml Vial IV Q1H PRN CIWA-Ar 8-15 Lorazepam 4 mg 02/26/21 07:30 Lorazepam 2 Mg/Ml Vial IV Q1H PRN CIWA-Ar 16-25 Lorazepam 4 mg 02/26/21 07:30 Lorazepam 2 Mg/Ml Vial IV Q15MIN PRN CIWA-Ar >25 Magnesium Hydroxide 30 ml 02/26/21 01:34 Magnesium Hydroxide (Mom) Oral Liqd Udc PO Q4H PRN Constipation Metoclopramide HCl 10 mg 02/26/21 01:34 Metoclopramide 10 Mg Tab PO Q6H PRN Nausea And Vomiting Metoprolol Tartrate 25 mg 02/27/21 10:30 02/27/21 10:35 Metoprolol Tartrate 25 Mg Tab PO 25 mg BID BENY Administration Morphine Sulfate 2 mg 02/26/21 01:34 Morphine 2 Mg/1 Ml Inj IV Q4H PRN Pain, Moderate (4-6) Morphine Sulfate 4 mg 02/26/21 01:34 Morphine 4 Mg/1 Ml Inj IV Q4H PRN Pain , Severe (7-10) Ondansetron HCl 4 mg 02/26/21 01:34 Ondansetron 4 Mg/2 Ml Inj IV Q8H PRN Nausea And Vomiting Promethazine HCl 25 mg 02/26/21 01:34 Promethazine 25 Mg Rect Supp MN Q6H PRN Nausea And Vomiting Sodium Chloride 10 ml 02/26/21 10:00 02/27/21 10:21 Sodium Chloride 0.9% 10 Ml Flush Syringe IV 10 ml BID BENY Administration Sodium Chloride 10 ml 02/26/21 01:34 Sodium Chloride 0.9% 10 Ml Flush Syringe IV PRN PRN LINE FLUSH Nutrition/Malnutrition Assess - Dietary Evaluation Nutrition/Malnutrition Findings: Nutrition Notes Start: 02/26/21 12:12 Freq: Status: Active Protocol: Document 02/26/21 12:12 KEVIN (Rec: 02/26/21 12:37 KEVIN [email or web address]) Nutrition Notes Need for Assessment generated from: Education Initial or Follow up Assessment Current Diagnosis Hypertension,Stroke Other Pertinent Diagnosis Altered mental state, minor stroke Current Diet Cardiac ( since B 02/26) Labs/Tests 02/25: BUN 7, Glu 111. Pertinent Medications 02/26;: Nutritionally unremarkable. Height 5 ft 7 in Weight 61.2 kg [place] Body Weight (kg) 67.27 BMI 21.1 Weight Status Appropriate Subjective/Other Information At the time, Pt does not appear to be a candidate for nutrition education due to AMS diagnosis, and ongoing treatment. Percent of energy/protein needs met: Prescribed Cardiac Diet provides with energy/protein needs (2,230 Kcal/85 g) during LOS. Burn Absent Trauma Absent GI Symptoms None Food Allergy No Skin Integrity/Comment Clear, warm, dry. #1 Nutrition Diagnosis No nutrition diagnosis at this time Comments: Pt does not appear to be a candidate for nutrition education at the time due to AMS diagnosis, and ongoing treatment. Is patient on ventilator? No Is Patient Ambulatory and/or Out of Bed Yes REE-([facility]-ambulatory/OOB) [ 1736.319 [id number]] Kcal/Kg value to use for calculation 30 Approximate Energy Requirements Using 1836 kcal/Kg Calculation Used for Recommendations Kcal/kg Additional Notes Protein: 0.8-1.0 g/Kg/day; 54- 67 g/day; 216-268 Kcal/day ( from IBW). Fluids: 1.0 ml/Kcal/day, or as per MD. Nutrition Intervention Change Diet Order: Continue Cardiac Diet. Goal #1 Maintain body weight within +/ -3% of current BWt durin LOS. Goal #2 Reach and maintain acceptable chemistry lab values during LOS. Follow-Up By: 03/01/21 Additional Comments Monitor acceptance of foods, % PO intake of meals, Hydration , and BM.
[2021-02-28] MEDS: HEPARIN 5,000 UNIT/1 ML VIAL SUB-Q SCH ×2 (05:47→14:01)
[2021-02-28] MEDS: ISOSORBIDE DINITRATE 10 MG TAB PO SCH ×3 (05:47→14:01)
[2021-02-28] MEDS: hydrALAZINE 25 MG TAB PO SCH ×2 (05:47→14:00)
[2021-02-28] MEDS: SODIUM CHLORIDE 0.9% 1000 ML 1,000 ML IV SCH (05:47)
[2021-02-28] MEDS ORDERED: FUROSEMIDE 20 MG TAB PO SCH (10:00)
[2021-02-28] MEDS: ASPIRIN 325 MG TAB PO SCH (10:50)
[2021-02-28] MEDS: METOPROLOL TARTRATE 25 MG TAB PO SCH (10:50)
--- NOTE | 2021-02-28 13:40 | Progress Note ---
Assessment and Plan Echo 02/26/2021-EF 15 to 20%, left ventricle is moderately dilated, left ventricular systolic function is severely decreased. Right ventricle is not well visualized, right ventricular systolic function grossly normal, left atrium is normal in size saline bubble study did not demonstrate PFO, mild tricuspid regurgitation. 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 Will see as needed - Patient Problems (1) Alcohol intoxication Current Visit: Yes Status: Acute (2) DVT prophylaxis Current Visit: Yes Status: Acute (3) HFrEF (heart failure with reduced ejection fraction) Current Visit: Yes Status: Acute Subjective Date of service: 02/28/21 Principal diagnosis: Altered mental status Interval history: Patient resting in bed with no cardiac complaints Sinus 94 with PVCs on monitor Objective Vital Signs Temp Pulse Resp BP Pulse Ox 02/28/21 08:44 97.2 F L 99 H 24 114/72 93 02/28/21 05:47 127/78 02/28/21 04:03 98.1 F 87 18 127/78 95 02/28/21 03:00 98 02/27/21 23:11 98.5 F 94 H 18 119/69 96 02/27/21 21:57 110/71 02/27/21 21:55 88 02/27/21 19:52 97.8 F 94 H 18 110/71 97 02/27/21 15:00 98 02/27/21 13:58 81 123/76 - Physical Examination General: No Apparent Distress HEENT: Positive: PERRL Neck: Positive: trachea midline Cardiac: Positive: Reg Rate and Rhythm Lungs: Positive: Normal Breath Sounds Neuro: Positive: Grossly Intact Abdomen: Positive: Soft Skin: Negative: Rash, Suspicious Lesions Extremities: Present: upper extr. pulses, lower extr. pulses. Absent: edema - Imaging and Cardiology Echo: report reviewed - Telemetry EKG Rhythm: Sinus Rhythm - EKG Sinus rhythms and dysrhythmias: sinus rhythm Repolarization changes or abnormalities: nonspecific abnormality, ST segment, and/or T wave
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
[2021-02-28 17:39] VITALS: BP 100/48
[2021-03-01] MEDS ORDERED: LOSARTAN 25 MG TAB PO SCH (10:00)
== END 2021-02-28 22:07 | disposition home health service (06) | DRG 312 ==
LOC: ED 23:11 → 4A 02-26 01:09 → OBSVTOIN 02-26 09:30
PROVIDERS: ADMIT Internal Medicine Geriatric Medicine; ATTEND Internal Medicine
DX: R55 Syncope and collapse (principal); C34.90 Malignant neoplasm of unspecified part of unspecified bronchus or lung; I50.22 Chronic systolic (congestive) heart failure; F10.929 Alcohol use, unspecified with intoxication, unspecified; Z86.73 Personal history of transient ischemic attack (TIA), and cerebral infarction without residual deficits; F17.200 Nicotine dependence, unspecified, uncomplicated; I11.0 Hypertensive heart disease with heart failure
CPT/HCPCS: 36415; 70450; 70553; 80048; 80061; 80076; 80320; 83735; 84484; 85025; 85610; 87641; 90686; 93005; 93306; 93880; 99406; G0378; A9575; G0480; J1644; J7030